=== PATIENT | female | born 1995 | race Caucasian/White ===

== ENCOUNTER 2022-09-17 11:28 | Outpatient (CLI) | payer OTHER, SELFPAY ==
--- NOTE | ~2022-09-17 | XR_ITS ---
EXAMINATION: XR abdomen/kub 1V INDICATION: Left flank pain TECHNIQUE: Supine views of the abdomen were obtained on 2 radiographs. COMPARISON: CT from today FINDINGS: A 4 mm stone projects in the proximal left ureter between the left L1 and L2 transverse pro cesses. Additional known kidney stones are obscured by bowel contents. The bowel gas pattern is yessica l. The visualized osseous structures are unremarkable. IMPRESSION: 1. 4 mm stone in the proximal left ureter. Reviewed, dictated and finalized at location A.
--- NOTE | ~2022-09-17 | CT_ITS ---
EXAMINATION: CT abdomen pelvis wo con DATE: 09/17/2022 11:57 INDICATION: Left flank pain. TECHNIQUE: Computed tomography (CT) of the abdomen and pelvis was performed without intravenous contr ast. Automated exposure control and iterative reconstruction technique were employed. The dose-length product was 213.81 mGy-cm. COMPARISON: None. FINDINGS: The visualized portions of the lung bases are clear without pneumonia or pleural effusion. The heart size is normal. No pericardial effusion. The liver, gallbladder, spleen, pancreas, and adre nal glands are normal. There are 4 stones in the right kidney measuring up to 2 mm. There is a 2 mm i n left kidney. There is mild left hydronephrosis. There is a 4 mm stone in proximal left ureter. Ther e are no dilated loops of bowel. The appendix is not visualized. There are no pathologically enlarged lymph nodes. There is no free intraperitoneal fluid. There is mild lumbar spondylosis. IMPRESSION: 1. 4 mm stone in proximal left ureter with mild left hydronephrosis. 2. Bilateral nonobstructing kidney stones. Reviewed, dictated and finalized at location B.
== END 2022-09-17 11:29 | disposition home or self-care (01) ==
PROVIDERS: Visit Provider Nurse Practitioner Family
DX: R10.9 Unspecified abdominal pain (principal); N20.1 Calculus of ureter; N13.30 Unspecified hydronephrosis; N20.0 Calculus of kidney
CPT/HCPCS: 74018; 74176

== ENCOUNTER 2022-09-24 10:26 | Outpatient (CLI) | payer OTHER, SELFPAY ==
--- NOTE | ~2022-09-24 | XR_ITS ---
XR abdomen/kub 1V 09/24/2022 10:45 INDICATION: Left ureteral stone TECHNIQUE: KUB COMPARISON: None FINDINGS: Bowel gas pattern is normal. There is a calcification just below the left L2 transverse pro cess, consistent with ureteral or UPJ stone. There is no evidence of free air, mass, organomegaly, as cites or obstruction. No abnormal calculi are seen. The bones appear intact. IMPRESSION: 1: Left proximal ureteral or UPJ stone just below the left L2 transverse process measuring approximat leah 4 mm. Reviewed, dictated and finalized at location B. IMPRESSION: 1: Left proximal ureteral or UPJ stone just below the left L2 transverse proces s measuring approximately 4 mm.
== END 2022-09-24 10:27 | disposition home or self-care (01) ==
LOC: ANHIMG 10:28
PROVIDERS: Visit Provider Nurse Practitioner Family
DX: N20.1 Calculus of ureter (principal)
CPT/HCPCS: 74018

== ENCOUNTER 2022-09-27 01:08 | Day surgery (SDC) | payer OTHER, SELFPAY ==
[2022-09-26 08:38] VITALS: BMI 30.9
--- NOTE | 2022-09-26 08:43 | PC.NURSE ---
Report to the Outpatient Waiting Room, entrance under the green pavilion located off [facility], at time 0830 on date 09/27/22. Planned Procedure Time: 1030. Time changes happen often and if your time is changed the preop area will call you the afternoon before. - You and your visitor will be asked to self-screen and do not enter if you have any COVID symptoms. - We encourage only one visitor and NO visitors under age 16 are allowed at this time. Your visitor will receive communication by the phone number that is given day of service. - The patient visitor is requested to social distance or may leave the building when not with patient due to restrictions. - A mask is OPTIONAL within the hospital. Patients may have clear liquids (water, carbonated beverages, clear teas, apple juice) until 3 hours prior to surgery with a maximum of 20 ounces. - No food from midnight until time of surgery Take the following medications with a SIP of water the morning of surgery: BUSPIRONE, PAIN PILL IF NEEDED Medications to discontinue per physician: INDOMETHACIN, VITAMINS/SUPPLEMENTS Date to take last dose: NO MORE UNTIL AFTER SURGERY Please no make-up, nail albanian, hairspray, perfume, deodorant, or body powder the day of surgery. No jewelry (including any body piercings) or valuables the day of surgery, leave them at home. Please take a shower or bath the night before, or the morning of, surgery with an antibacterial soap. Wear comfortable, loose fitting clothing. - Jewelry must be removed prior to entering the operating room. Rings and piercings that are not removed may be cut off. - The hospital will not accept responsibility for valuables. - Please leave all valuables, including medications, at home the day of surgery. If you are going home after surgery, a licensed train driver must drive you home. - NO public transportation without another adult. - We recommend that an adult stay with you for 24 hours following discharge. - We also recommend that you do not drive, make important decision, drink alcoholic beverages, or take any drugs that were not prescribed by your health care provider for at least 24 hours after your discharge time. Follow any additional instructions given to you from your surgeon. If you or anyone in your household have experienced Covid symptoms in the past week, please notify your surgeon or the nurse liaison at the phone number below for possible testing. Telephone instructions given to PT - ANNMARIE GOODMAN and asked if any additional questions and then verbalized understanding. Patient advised to call surgeon office or pre surgery nurse liaison [phone] if any additional questions.
[2022-09-27] VITALS (10 sets, daily range): BP systolic 106–125; BP diastolic 57–79; PULSE 66–92; RESP 12–17; TEMP 36.6–37; O2SAT 99–100
--- NOTE | ~2022-09-27 | XR_ITS ---
XR abdomen/kub 1V 09/27/2022 08:57 Indication: Preop lithotripsy. Renal stone. Procedure: KUB Comparison: 09/24/2022 Findings: Bowel gas pattern is nonobstructive. There is a left-sided stone presumably at the UPJ carly uring 4 mm. No acute osseous abnormality. Impression: 1: Probable left UPJ stone measuring 4 mm. Reviewed, dictated and finalized at location B. Impression: 1: Probable left UPJ stone measuring 4 mm.
[2022-09-27] MEDS: LACTATED RINGERS 1,000 ML 30 ML IV CONT (09:10)
--- NOTE | 2022-09-27 09:12 | P.PNAN_ITS ---
Anes - Initial Pre Proc Eval Procedure: Operation Date: 09/27/22 10:30 Proposed Procedures p Left Ureteral Extracorporeal Shock Wave Lithotripsy - Danny Young MD Date/Time: 09/27/22 09:12 Surgeon: Danny Young MD Pre Op Diagnosis: left ureteral kidney stone Patient Data Age: 26 Gender: F Height: 1.6 m Weight: 79.38 kg Last Vital Signs Temp 36.6 C 09/27/22 08:57 Pulse 92 09/27/22 08:57 Resp 16 09/27/22 08:57 BP 119/63 09/27/22 08:57 Pulse Ox 100 09/27/22 08:57 O2 Del Method Room Air 09/27/22 08:57 Allergies Allergy/AdvReac Type Severity Reaction Status Date / Time Sulfa (Sulfonamide Allergy Hives Verified 09/26/22 08:35 Antibiotics) Home Medications Medication Instructions Recorded Confirmed Type buspirone 15 mg tablet 15 mg PO BID 09/26/22 09/26/22 History indomethacin 50 mg capsule 50 mg PO DAILY PRN Pain 09/26/22 09/26/22 History naratriptan 2.5 mg tablet 2.5 mg PO ONCE PRN Migraine 09/26/22 09/26/22 History Headache norgestimate 0.25 mg-ethinyl 1 tablet PO DAILY 09/26/22 09/26/22 History estradiol 35 mcg tablet (Sprintec (28)) ondansetron 4 mg disintegrating 4 mg PO Q6H PRN Nausea 09/26/22 09/26/22 History tablet peppermint oil 50 mg 50 mg PO DAILY 09/26/22 09/26/22 History capsule,delayed release tramadol 50 mg tablet 50 mg PO Q6H PRN Pain 09/26/22 09/26/22 History Patient hx anesthesia problems: none Family hx anesthesia problems: none Results Review: All pre-operative results and documents have been reviewed as part of the pre- operative evaluation. [facility] Past Medical History Medical History (Updated 09/27/22 @ 09:13 by Joe Blandon MD) Obesity Surgical History Surgical History (Updated 09/27/22 @ 09:13 by Joe Blandon MD) History of dilation of urethra Social History Social History Smoking status: Never smoker Alcohol intake: current Alcohol use details: 2/MONTH Substance use: never Substance use type: does not use Living arrangements: with family Spiritual care concerns: No Anes - Eval Final PreProcedure Day of Procedure 09/27/22 09:12 Patient weight: obese Heart: regular rate and rhythm Lungs: clear to auscultation Airway: Mallampati scale class 1 Neurological: alert and oriented Last oral intake: >/= 8 hours ASA classification: II Emergent: no Anesthetic plan: proceed Anesthesia type and monitoring: general LMA and standard monitoring Results Review: All pre-operative results and documents have been reviewed as part of the pre- operative evaluation. Informed Consent: The patient's anesthetic plan and its attendant risks and benefits were di scussed with the patient/family/POA. Questions were solicited and answers provided to the satisfaction of the patient/family/POA.
--- NOTE | 2022-09-27 09:35 | WPDHPUPDATE1 ---
History and Physical Update Update Date/Time: 09/27/22 09:35 History and Physical has been reviewed, including an updated exam of the patient. There are NO changes in the patient's condition. Risks, benefits, and alternatives have been discussed and questions answered. Patient agrees to proceed with procedure. Proceed with lithotripsy of left ureteral calculus
[2022-09-27 09:41] LABS: INR 1.1; Prothrombin Time 14.1 Seconds (11.1-14.7)
[2022-09-27] MEDS: ceFAZolin 2 GM/D5W 50 ML 2 GM/50 ML BAG IVPB (09:59)
--- NOTE | 2022-09-27 10:42 | W.PM.PROC2 ---
Procedure Note - Detailed Date of Procedure 09/27/22 Pre-op Diagnosis left ureteral kidney stone Post-op Diagnosis Same Procedure Performed Lithotripsy of left ureteral calculus Surgeon Danny Young MD Anesthesia General Description of Procedure Patient is taken to the operative suite correctly identified. Once anesthesia was obtained stone was localized both planes. Two thousand five hundred shocks were given the stone. Patient tolerated procedure well without complications taken recovery stable condition. She will follow-up in 7-10 days with KUB. Drains No Packing No Pathology None sent Complications No immediate complications Condition Stable Disposition PACU
[2022-09-27] MEDS: fentaNYL CITRATE INJ (*CRX) 100 MCG/2 ML VIAL 25 MCG IV PUSH ×5 (11:18→11:58)
[2022-09-27] MEDS: oxyCODONE HCL (*CRX) 5 MG TAB IR PO (12:16)
== END 2022-09-27 13:04 | disposition home or self-care (01) ==
PROVIDERS: Visit Provider Urology
PROC: (CPT 50590; principal; 2022-09-27 10:30)
DX: N20.1 Calculus of ureter (principal); E66.9 Obesity, unspecified; Z68.31 Body mass index [BMI] 31.0-31.9, adult
CPT/HCPCS: 50590; 36415; 74018; 85610; 85730; A9270; J0690; J1100; J2250; J2405; J2704; J3010; J7120

== ENCOUNTER 2022-10-04 09:16 | Outpatient (CLI) | payer OTHER, SELFPAY ==
--- NOTE | ~2022-10-04 | XR_ITS ---
EXAMINATION: XR abdomen/kub 1V DATE: 10/04/2022 09:36 INDICATION: Left flank pain. TECHNIQUE: A supine view of the abdomen on 2 radiographs was obtained. COMPARISON: 09/27/2022 FINDINGS: The small stone previously seen in the region of the left ureteropelvic junction is no longer visuali zed suggesting interval passage. Bilateral costochondral calcifications. No other suspicious calcific ations identified in the abdomen or pelvis. Normal bowel gas pattern. Lung bases are clear with no pl eural effusion. IMPRESSION: 1. No evident urolithiasis suggesting interval passage of the prior 4 mm left UPJ stone. Reviewed, dictated and finalized at location B. IMPRESSION: 1. No evident urolithiasis suggesting interval passage of the prior 4 mm left U PJ stone.
== END 2022-10-04 09:17 | disposition home or self-care (01) ==
PROVIDERS: Visit Provider Nurse Practitioner Family
DX: R10.9 Unspecified abdominal pain (principal)
CPT/HCPCS: 74018

== ENCOUNTER → 2023-09-30 08:24 | Outpatient (CLI) | payer OTHER, SELFPAY ==
--- NOTE | ~2023-09-30 | US_ITS ---
US abdomen limited DATE: 09/30/2023 08:41 INDICATION: Elevated liver function tests TECHNIQUE: Real-time imaging of liver, pancreas, gallbladder COMPARISON: 09/17/2022 CT abdomen pelvis FINDINGS: No hepatic or pancreatic mass lesion is noted. Normal hepatopedal portal venous flow direct ion. No gallstones or gallbladder wall thickening or abnormal pericholecystic fluid collection. Negative s onographic Block's sign. The common bile duct measures 4.3 mm, normal. IMPRESSION: No significant abnormality Reviewed, dictated and finalized at Location A. Reviewed, dictated and finalized at location L. IMPRESSION: No significant abnormality
== END ==
PROVIDERS: PCP Physician Assistant; Visit Provider Physician Assistant
DX: R79.89 Other specified abnormal findings of blood chemistry (principal)
CPT/HCPCS: 76705

== ENCOUNTER 2024-05-15 04:26 | Emergency (ER) | payer OTHER, SELFPAY ==
[2024-05-15] VITALS (7 sets, daily range): BP systolic 122–126; BP diastolic 68–92; PULSE 84–93; RESP 15–18; TEMP 36.6; O2SAT 98–100
--- NOTE | ~2024-05-15 | CT_ITS ---
EXAMINATION: CT abdomen pelvis wo con DATE: 05/15/2024 05:44 INDICATION: Right flank pain TECHNIQUE: Computed tomography (CT) of the abdomen and pelvis was performed without intravenous contr ast. Automated exposure control and iterative reconstruction technique were employed. Exam dose: 432 .03 mGy-cm total exam DLP. COMPARISON: 09/30/2023 Limited abdominal ultrasound examination 10/04/2022 KUB 09/17/2022 CT abdomen pelvis FINDINGS: The lung bases are clear. Normal heart size. No pericardial or pleural effusion. Liver, gallbladder, bile ducts, spleen, pancreas, pancreatic duct and adrenal glands are unremarkable . 2 mm nonobstructing right renal calculus. 2.7 mm right ureterovesical junction calculus with mild right hydroureteronephrosis. Two pinpoint nonobstructing left renal calculi. No left ureteral calculus or left hydronephrosis. The urinary bladder is relatively evacuated. The uterus and adnexal areas are unremarkable. Normal caliber of the abdominal aorta. No intraperitoneal or retroperitoneal or pelvic mass lesion or adenopathy or ascites is detected. No bowel obstruction or intraperitoneal free air. Very small fat-containing umbilical hernia. Included skeletal structures are unremarkable. IMPRESSION: 2.7 mm right ureterovesical junction calculus with mild right hydroureteronephrosis Mild bilateral nephrolithiasis Reviewed, dictated and finalized at Location A. Reviewed, dictated and finalized at location A. IMPRESSION: 2.7 mm right ureterovesical junction calculus with mild right hydr oureteronephrosis Mild bilateral nephrolithiasis
[2024-05-15 04:47] LABS: Basophils Percent Auto 0.2 % (0.2-1.2); Eosinophils Absolute Auto 0.1 K/mm3 (0-0.3); Eosinophils Percent Auto 0.5 % (0-4.4); Hemoglobin 13.1 g/dL (12.0-15.0); Immature Granulocyte Absolute 0.04 K/mm3 (0.00-0.031); Immature Granulocyte Percent A 0.3 % (0-0.5); Lymphocytes Absolute Auto 2.66 K/mm3 (0.9-3.2); Lymphocytes Percent Auto 22.5 % (18.3-44.2); Mean Corpuscular HGB Conc 33.6 g/dl (32-36); Mean Corpuscular Hemoglobin 30.8 pg (26-34); Mean Corpuscular Volume 91.8 fl (80-100); Mean Platelet Volume 9.4 fl (7.4-10.4); Monocytes Absolute Auto 0.6 K/mm3 (0.1-0.6); Monocytes Percent Auto 5.3 % (2.6-8.5); Neutrophils Absolute Auto 8.4 K/mm3 (1.3-6.7); Neutrophils Percent Auto 71.2 % (45.5-73.1); Platelet Count Result 267 k/mm3 (150-375); Red Blood Count 4.25 M/mm3 (4.2-5.4); Red Cell Distribution Width 12.5 % (11.5-14.5); White Blood Count 11.8 K/mm3 (4.5-10.0)
[2024-05-15] MEDS: HYDROmorphone HCL INJ (*CRX) 1 MG/ML SYR 0.5 MG IV PUSH ×2 (05:04→07:49)
[2024-05-15] MEDS: ONDANSETRON INJ 4 MG/2 ML VIAL IV PUSH (05:04)
[2024-05-15] MEDS: SODIUM CHLORIDE 0.9% IV 1,000 ML 999 ML IV CONT (05:04)
[2024-05-15 05:14] LABS: Appearance Urine Clear (Clear); Bacteria Urine None Seen /hpf; Bilirubin Urine Negative (Negative); Blood Urine 2+ (Negative); Color Urine Yellow (Yellow); Glucose Urine UA Negative (Negative); Ketones Urine Negative (Negative); Leukocyte Esterase Ur Negative LEU/UL (Negative); Nitrate Urine Negative (Negative); Non Pathogenic Casts 0-2; Protein Urine Negative (Negative); Specific Grav Ur 1.023 (1.001-1.035); Squamous Epithelial Cell Urine Occasional /hpf (Few); Urobilinogen Urine 0.2 mg/dL (<2.0); WBC Urine 0-5 /hpf (0-3)
[2024-05-15 05:19] LABS: Add Urine Microscopic? YES
[2024-05-15 05:24] LABS: Alanine Aminotransferase 15 U/L (6-35); Albumin Level 4.4 g/dL (3.5-5.1); Alkaline Phosphatase 80 U/L (38-126); Anion Gap 9 mmol/L (4-12); Aspartate Amino Transferase 19 U/L (14-36); Bilirubin,Total 0.8 mg/dL (0.2-1.3); Blood Urea Nitrogen 12 mg/dL (7-17); Carbon Dioxide 22 mmol/L (22-30); Chloride 109 mmol/L (98-107); Estimated CRCL calculation 104 ml/min; Estimated Glomerular Filt Rate > 60; Glucose 111 mg/dL (65-110); Lipase 76 U/L (23-300); Potassium 3.8 mmol/L (3.4-5.0); Sodium 140 mmol/L (137-145)
--- NOTE | 2024-05-15 05:31 | ED.GENADULT ---
HPI - General Adult General Chief complaint: Abdominal Pain Stated complaint: Right flank pain Time Seen by Provider: 05/15/24 04:39 History of Present Illness HPI narrative: This is a 28-year-old female history of kidney stones presenting with right flank pain. Pain started several hours prior to arrival. He has a sharp pain in right flank that radiates into her groin. She has dysuria, Nausea and vomiting. Denies fevers chills Or abdominal pain. Says this feels similar to kidney stone she has had in the past. Related Data Home Medications Medication Instructions Recorded Confirmed buspirone 15 mg tablet 15 mg PO BID 09/26/22 09/26/22 indomethacin 50 mg capsule 50 mg PO DAILY PRN Pain 09/26/22 09/26/22 naratriptan 2.5 mg tablet 2.5 mg PO ONCE PRN Migraine 09/26/22 09/26/22 Headache norgestimate 0.25 mg-ethinyl 1 tablet PO DAILY 09/26/22 09/26/22 estradiol 35 mcg tablet (Sprintec (28)) ondansetron 4 mg disintegrating 4 mg PO Q6H PRN Nausea 09/26/22 09/26/22 tablet peppermint oil 50 mg 50 mg PO DAILY 09/26/22 09/26/22 capsule,delayed release tramadol 50 mg tablet 50 mg PO Q6H PRN Pain 09/26/22 09/26/22 Allergies Allergy/AdvReac Type Severity Reaction Status Date / Time Sulfa (Sulfonamide Allergy Hives Verified 09/26/22 08:35 Antibiotics) PMFSH Past Medical History Medical History Obesity Surgical History Surgical History History of dilation of urethra Social History Social History Smoking status: Never smoker Alcohol intake: current Alcohol use details: 2/MONTH Substance use: never Substance use type: does not use Living arrangements: with family Spiritual care concerns: No Exam Narrative: APPEARANCE: No apparent distress. Head: atraumatic. EYES: EOMI, NOSE: Atraumatic NECK: Trachea midline RESPIRATORY: No increased rate of breathing CARDIOVASCULAR: RRR, ABDOMINAL: Non-distended Soft nontender, right CVA tenderness MUSCULOSKELETAl: No obvious deformities NEURO: Alert. Moving 4/4 extremities SKIN:: Warm, dry. Normal color PSYCHIATRIC: Normal affect Course Vital Signs Vital signs: Vital Signs Temperature 97.9 F 05/15/24 04:38 Pulse Rate 84 05/15/24 04:38 Respiratory Rate 15 05/15/24 04:38 Blood Pressure 126/92 H 05/15/24 04:38 Pulse Oximetry 98 05/15/24 04:38 Oxygen Delivery Room Air 05/15/24 04:38 Temperature 97.9 F 05/15/24 04:38 Pulse Rate 84 05/15/24 04:38 Respiratory Rate 05/15/24 04:38 Blood Pressure 126/92 H 05/15/24 04:38 Pulse Oximetry 100 05/15/24 06:15 Oxygen Delivery Room Air 05/15/24 04:38 Medical Decision Making MDM Narrative Medical decision making narrative: -Course: 28-year-old female presenting with right flank pain. CT showed a 2.7 mm stone at the right UVJ. No evidence of infection. Pain was controlled in the emergency department. Patient will be discharged with supportive medications. Given Neurology follow-up return precautions. -DDX includes but is not limited to: kidney stone, kidney infection, muscle strain -Co-morbidities complicating care: history of kidney stones, migraines -Independent interpretation of studies: Labs reviewed. Urine not indicative of infection CT 2.7 mm right ureterovesical junction calculus with mild right hydroureteronephrosis Mild bilateral nephrolithiasis -Interventions: 0.5 mg Dilaudid x2, 1000 mg Tylenol, 15 mg Toradol, 2 L normal saline, 4 mg Zofran -Shared decision making / Disposition: discharge -RX Motrin, Tylenol, oxycodone, Flomax Vital Signs Vital Signs: Vital Signs Temperature 97.9 F 05/15/24 04:38 Pulse Rate 84 05/15/24 04:38 Respiratory Rate 05/15/24 04:38 Blood Pressure 126/92 H 05/15/24 04:38 Pulse Oximetry 98 05/15/24 04:38 Oxygen D
[2024-05-15] MEDS: KETOROLAC 15 MG/ML VIAL (*BKC) IV PUSH (07:08)
== END 2024-05-15 08:08 | disposition home or self-care (01) ==
PROVIDERS: Emergency Provider Emergency Medicine
DX: N13.2 Hydronephrosis with renal and ureteral calculous obstruction (principal); E66.9 Obesity, unspecified; Z68.30 Body mass index [BMI] 30.0-30.9, adult; Z87.442 Personal history of urinary calculi; Z79.3 Long term (current) use of hormonal contraceptives; Z79.899 Other long term (current) drug therapy
CPT/HCPCS: 36415; 74176; 80053; 81001; 81025; 83690; 85025; 96361; 96374; 96375; 96376; 99284; J1170; J1885; J2405; J7030

== ENCOUNTER 2024-07-01 11:02 | Outpatient (CLI) | payer OTHER, SELFPAY ==
--- NOTE | ~2024-07-01 | XR_ITS ---
XR abdomen/kub 1V Ordering provider: Flakita Morrison PA-C History: . RT URETERAL STONE . Comparison: October 04, 2022 FINDINGS: BOWEL: Nonobstructive bowel gas pattern. ORGANOMEGALY: None. SIGNIFICANT PATHOLOGIC CALCIFICATIONS: None. OTHER: No free air is seen under the diaphragm. IMPRESSION: NO ACUTE ABDOMINAL FINDINGS. Reviewed, dictated and finalized at location A.
--- NOTE | ~2024-07-01 | US_ITS ---
EXAMINATION: US retroperitoneal comp DATE: 07/01/2024 11:49 INDICATION: Right ureteral stone. TECHNIQUE: Multiple ultrasound grayscale images of the kidneys were obtained. COMPARISON: CT abdomen and pelvis 05/15/2024 FINDINGS: The right kidney measures 12.1 x 4.1 x 5.1 cm. The left kidney measures 11.2 x 4.7 x 3.9 cm. The kidn eys demonstrate normal parenchymal echogenicity. There is no hydronephrosis. The bladder is normal. IMPRESSION: 1. Normal kidneys. No hydronephrosis. Reviewed, dictated and finalized at location A.
== END 2024-07-01 11:03 | disposition home or self-care (01) ==
LOC: ANHIMG 11:06
PROVIDERS: Visit Provider Physician Assistant
DX: N20.1 Calculus of ureter (principal)
CPT/HCPCS: 74018; 76770

== ENCOUNTER 2025-07-04 11:04 | Outpatient (CLI) | payer OTHER, SELFPAY ==
--- NOTE | ~2025-07-04 | XR_ITS ---
XR abdomen/kub 1V 07/04/2025 11:24 INDICATION: History of kidney stones TECHNIQUE: KUB COMPARISON: None FINDINGS: Bowel gas pattern is normal. There is no evidence of free air, mass, organomegaly, ascites or obstruction. No abnormal calculi are seen. The bones appear intact. IMPRESSION: 1: No acute abdominal abnormality identified. Reviewed, dictated and finalized at location A.
--- OUTSIDE RECORDS SUMMARY | 2025-07-04 11:34 | XMS_ITS | Encounter Summary ---
Author Organization [facility] Address [address] [place] [id number] Care Team Providers Care Veneer Stacker Name Role Phone Alesia Rooney Primary Care Provider + [phone] Sarahi Haines NP Primary Care Provider [phone] Encounter Details Date Type Department Care Team (Late st Contact Info) Description 08/02/2020 Classroom IQ Message Enc [facility] Family & Internal Medicine [facility] [address] [place] [address] [place] [address] [place] [address] RE: Medication Questions Social History Tobacco Use Types Packs/Day Years Used Date Smoking Tobacco: Never Smokeless Tobacco: Never Alcohol Use Standard Drinks/Week Comments Yes 0 (1 standard drink = 0.6 oz pur e alcohol) occasional. AUDIT-C Answer Date Recorded Q1: How often do you have a drink containing alc ohol? 2-4 times a month 07/18/2020 Q2: How many drinks containi ng alcohol do you have on a typical day when you are drinking? 3 or 4 07/18/2020 Q3: How often do you have si x or more drinks on one occasion? Less than monthly 07/18/2020 PHQ-2 Answer Date Recorded PHQ-2 Score - If the patient scores above 3, please move on to questions 3-9 0 08/01/2020 Comments No Sex and Gender Information Value Date Recorded Sex Assigned at Female 12/30/2024 12:23 PM CIGAR ROLLER Legal Sex Female 10:39 AM CDT Gender Identity Not on file Sexual Orientation Not on file COVID-19 Exposure Response Date Recorded In the last month, have you been in contact with someone who was confirmed or suspected to have Coronavirus / COVID-19? No / Unsure 08/01/2020 7:39 AM CDT documented as of this encounter Plan of Treatment Not on file documented as of this encounter Visit Diagnoses Not on filedocumented in this encounter Care Teams Veneer Stacker Relationship Specialty [place] [address] [place] [address] PCP - General PHYSICIAN REPORTING ANALYST 07/18/20 04/26/24 [place] [address] [address] [facility] [address] [place] [address] PCP - General Nurse Practitioner Family 04/27/24 documented as of this encounter
--- OUTSIDE RECORDS SUMMARY | 2025-07-04 11:34 | XMS_ITS | Encounter Summary ---
Author Organization [facility] Address [address] [place] [address] Care Team Providers Care Dispensing Operator Name Role Phone Sarahi Haines NP Primary Care Provider [phone] Encounter Details Date Type Department Care Team (Late st Contact Info) Description 03/14/2025 Rattlet Message Enc [facility] Medical [facility] Orthopedic & Sports Medicine - [place] [address] [place] [address] [phone] Magnus Go NP [address] [place], [place] [address] [phone] Referral Social History Tobacco Use Types Packs/Day Years Used Date Smoking Tobacco: Never Passive Smoke Exposure: Never Smokeless Tobacco: Never Alcohol Use Standard Drinks/Week Comments Yes 0 (1 standard drink = 0.6 oz pur e alcohol) once every few months AUDIT-C Answer Date Recorded Q1: How often [...] than monthly 07/18/2020 PHQ-2 Answer Date Recorded Patient Health Questionnaire-2 Score 0 02/08/2025 Comments No Sex and Gender Information Value Date Recorded Sex Assigned at Female 12/30/2024 12:23 PM APN Legal Sex Female 10:39 AM CDT Gender Identity Not on file Sexual Orientation Not on file documented as of this encounter Plan of Treatment Not on file documented as of this encounter Visit Diagnoses Not on filedocumented in this encounter Additional Health Concerns Assessment Noted Time PHQ-9 Depression Total Score: 2 02/09/20 25 3:53 PM CDT documented as of this encounter Care Teams Dispensing Operator Relationship Specialty [place] [address] [place] [address] PCP - General Nurse Practitioner Family 04/27/24 documented as of this encounter
--- OUTSIDE RECORDS SUMMARY | 2025-07-04 11:34 | XMS_ITS | Clinical Summary ---
Author Organization [facility] Address [address] [facility] [place] [address] Care Team Providers Care Unit Nurse Name Role Phone Kvng Ma MD Primary Care Provider [phone] Source Comments [facility],non-owned Affiliates and Associated Physician Practices is amultiple site organization consisting of ambulatory clinics and hospital sitesin [place], [place], [place] and [place]. This disclosure is being madepursuant to the Care Everywhere program and may not contain all information available regarding this patient. Last updated 18.[facility] Allergies Active Allergy Reactions Criticality Noted Date Comments Sulfa Drugs Urticaria Medium 06/23/2019 Medications * Be aware that medications may not be up to date on this document. Alwaysverify current medications with the patient. SUMATRIPTAN SUCCINATE PO Active norgestimate-eth inyl estradiol (SPRINTEC 28) 0.25-35 MG-MCG tablet Take 1 tablet by mouth once daily Active ibuprofen (MOTRIN) 600 MG tablet Take 600 mg by mouth every 6 hours as needed for Pain Active Social History Tobacco Use Types Packs/Day Years Used Date Smoking Tobacco: Never Smokeless Tobacco: Never Comments No Sex and Gender Information Value Date Recorded Sex Assigned at Not on file Legal Sex Female 5:36 AM TILLER MAN Gender Identity Not on file Sexual Orientation Not on file Last Filed Vital Signs Vital Sign Reading Time Taken Comments Blood Pressure 112/58 06/23/2019 11:20 AM CDT Pulse 92 06/23/2019 11:20 AM CDT Temperature 37.1 C (98.7 F) 06/23/2019 11:20 AM CDT Respiratory Rate 18 06/23/2019 11:20 AM CDT Oxygen Saturation 99% 06/23/2019 11:20 AM CDT Inhaled Oxygen Concentration - - Weight - - Height - - Body Mass Index - - Plan of Treatment Health Maintenance Due Date Last Done Comments DTAP/TDAP/TD VACCINES (1 - Tdap) 2012 HEPATITIS B VACCINE (1 of 3 - 19+ 3-dose series) 2012 HPV VACCINE (1 - 3-dose SCDM series) 2020 COVID-19 VACCINE (1 - 2023-2 5 season) 2024 DEPRESSION SCREENING 12/01/2024 INFLUENZA VACCINE (#1) 2025 02/18/2014 PAP SMEAR 01/06/2027 01/06/2024 ZOSTER VACCINE (1 of 2) 2043 HEPATITIS C SCREENING Completed 01/06/2024 , 01/06/2024, 01/06/2024 HIV SCREENING Completed 01/06/2024 HIB VACCINE Aged Out No longer eligi ble based on patient's age to complete this topic MENINGOCOCCAL (Group B) VACCINE SHARED DECISION-MAKING Aged Out No longer eligible based on patient's age to complete this topic MENINGOCOCCAL GROUPS A/C/Y/W VACCINE Aged Out No longer eligible b ased on patient's age to complete this topic PNEUMOCOCCAL VACCINE Aged Out No long er eligible based on patient's age to complete this topic Insurance AET[employer] Care Teams Unit Nurse Relationship Specialty Start Date End Date Kvng Ma MD PCP - General Family Medicine 06/23/19
--- OUTSIDE RECORDS SUMMARY | 2025-07-04 11:34 | XMS_ITS | Encounter Summary ---
Author Organization [facility] Address [address] [place] [address] Care Team Providers Care Organ Teacher Name Role Phone Alesai Rooney Primary Care Provider + [phone] Sarahi Haines NP Primary Care Provider + [phone] Encounter Details Date Type Department Care Team (Late st Contact Info) Description 02/24/2024 RedSeguro Message Enc [facility] Family & Internal Medicine [facility] [address] [place] [address] [place] [address] [place] [address] Throat/Tonsils Social History Tobacco Use Types Packs/Day Years Used Date Smoking Tobacco: Never Passive Smoke Exposure: Never Smokeless Tobacco: Never Alcohol Use Standard Drinks/Week Comments Yes 0 (1 standard drink = 0.6 oz pur e alcohol) Once a month - if that. AUDIT-C Answer Date Recorded Q1: How often [...] Date Recorded Patient Health Questionnaire-2 Score 0 01/06/2024 Comments No Sex and Gender Information Value Date Recorded Sex Assigned at Female 12/30/2024 12:23 PM MARKETING TRAFFIC COORDINATOR Legal Sex Female 10:39 AM CDT Gender Identity Not on file Sexual Orientation Not on file documented as of this encounter Plan of Treatment Not on file documented as of this encounter Visit Diagnoses Not on filedocumented in this encounter Additional Health Concerns Assessment Noted Time PHQ-9 Depression Total Score: 5 08/23/20 22 3:00 PM CDT documented as of this encounter Care Teams Organ Teacher Relationship Specialty [place] [address] [place] [address] PCP - General PHYSICIAN PROPERTY UTILIZATION OFFICER 07/18/20 04/26/24 [place] [address] [place] [address] [place] [address] PCP - General Nurse Practitioner Family 04/27/24 documented as of this encounter
--- OUTSIDE RECORDS SUMMARY | 2025-07-04 11:34 | XMS_ITS | Clinical Summary ---
Author Organization [facility] Address [facility] [place] [address] Care Team Providers Care Computer Technologist Name Role Phone Sarahi Haines NP Primary Care Provider + [phone] Allergies Active Allergy Reactions Criticality Noted Date Comments Sulfa Antibiotics Hives Medium 06/23/2019 Medications ondansetron 4 MG disintegrating tablet Take 1 tablet (4 mg total) by mouth every 8 (eight) hours as needed. 09/22/20 20 Active indomethacin 50 MG capsule Take 1 capsule (50 mg total) by mouth daily as needed. 09/06/20 21 Active botulinum toxin type A (BOTOX) 200 units injection Inject 200 Units into the skin every 3 (three) months. 03/04/20 22 Active Peppermint Oil (PEPOGEST) 0.2 ML CAPSULE DELAYED RELEASE 1 capsule daily. Active naratriptan (AMERGE) 2.5 MG tablet Take 1 tablet (2.5 mg total) by mouth as needed. 02/06/20 22 Active Bacillus Coagulans-Inulin (PROBIOTIC-PREBIOT IC OR) 10/31/20 23 Active Norethindrone, Contraceptive, 0.35 MG tabletIndications: Encounter for initial prescription of contraceptive pills Take 1 tablet by mouth daily. 84 tablet 1 01/18/20 25 Active Elastic Bandages & Supports (WRIST SPLINT/COCK-UP/LEF T M) MiscIndications:Bi lateral carpal tunnel syndrome 1 Device by Does not apply route nightly at bedtime. 1 each 02/09/20 25 Active Elastic Bandages & Supports (WRIST SPLINT/COCK-UP/RIG HT M) MiscIndications:Bi lateral carpal tunnel syndrome 1 Device by Does not apply route nightly at bedtime. 1 each 02/09/20 25 Active MAGNESIUM GLYCINATE OR Active LORazepam (ATIVAN) 0.5 MG tabletIndications: Anxiety TAKE 1 TABLET BY MOUTH EVERY 8 HOURS NEEDED FOR ANXIETY 30 tablet 06/27/20 25 Active LORazepam (ATIVAN) 0.5 MG tabletIndications: Anxiety Take 1 tablet (0.5 mg total) by mouth every 8 (eight) hours as needed for Anxiety. 30 tablet 02/09/20 25 025 Discontinued Active Problems Problem Noted Date Diagnosed Date Anxiety 05/18/2022 Recurrent major depressive disorder 05/18/2022 Migraine without aura and wi thout status migrainosus, not intractable 10/17/2017 Kidney stones 08/18/2017 Encounters Date Type Department Care Team Description 06/06/2025 Orders Only [facility] Medical [facility] Orthopedic & Sports Medicine [facility] [address] [place] [address] Magnus Go NP 06/06/2025 MyChart Message Enc [facility] Orthopedic & Sports Medicine [facility] [address] [place] [address] Magnus Go NP OT - Athletico from Last 3 Months Immunizations Immunization Administration Dates Next Due Dtap 08/04/1998,06/26/1994,04/01/1994 ,01/30/1994 Hepatitis B 09/30/1994,1993,1993 Hib (Generic) 06/26/1995 IPV/OPV 06/12/1999,06/01/1994,04/01/1994 ,01/30/1994 Influenza (Generic) 02/18/2014 MMR 06/12/1999,12/05/1994 Tdap (Adacel) 06/07/2008 Varicella (Generic) 06/07/2008,07/11/2004 Family History Medical History Relation Comments Drug Abuse Father Mental Health Father COPD Maternal Grandmother Diabetes Maternal Grandmother Mental Health Maternal Grandmother Mental Health Mother Mental Health Sister Relation Status Comments Father Alive Maternal Grandmother Mother Alive Sister Social History Tobacco Use Types Packs/Day Years Used Date Smoking Tobacco: Never Passive Smoke Exposure: Never Smokeless Tobacco: Never Tobacco Cessation:Counseling Given: No Alcohol Use Standard Drinks/Week Comments Yes 0 [...] Sex Assigned at Female 12/30/2024 12:23 PM SAFETY INSPECTOR Legal Sex Female 10:39 AM CDT Gender Identity Not on file Sexual Orientation Not on file Last Filed Vital Signs Vital Sign Reading Time Taken Comments Blood Pressure 101/59 02/22/2025 8:10 AM CDT Pulse 69 02/22/2025 8:10 AM CDT Temperature 37.2 C (99 F) 02/22/2025 8:10 AM CDT Respiratory Rate 18 02/08/2025 2:32 PM CDT Oxygen Saturation 100% 02/08/2025 2:32 PM CDT Inhaled Oxygen Concentration - - Weight 80.3 kg (177 lb) 02/22/2025 8:10 AM CDT Height 160 cm (5' 3) 02/22/2025 8:10 AM CDT Body Mass Index 31.35 02/22/2025 8:10 AM CDT Plan of Treatment Health Maintenance Due Date Last Done Comments DTaP, Tdap and Td Vaccines (6 - Td or Tdap) 06/07/2018 06/07/2008, 08/04/1998, 06/26/1994, Additional history exists HPV Vaccines (1 - 3-dose SCDM series) 2020 Annual Physical 01/06/2025 01/06/2024, 10/02, 10/18/2021, Additional history exists COVID-19 Vaccine ( season) 2026 Postponed from 08/01/2024 (Patient Refused) Cervical Cancer Screening Pap Smear (Age 30 to 64) Every 3 Years 01/06/2027 01/06/2024, 10/21/2022, 10/18/2021, Additional history exists Cervical Cancer Screening Pap with HPV Testing (Age 30 to 64) Every 5 Years 01/06/2029 01/06/2024 Cervical Cancer Screening with HPV 01/06/2029 Hepatitis B Vaccines Completed 09/30/1994, 1993, 1993 Hepatitis C Completed 01/06/2024 PHQ-2 (Physician Ute) Completed 02/08/2025 Meningococcal B Vaccine Aged Out No l onger eligible based on patient's age to complete this topic Meningococcal Vaccine Aged Out No marcio raquel eligible based on patient's age to complete this topic Pneumococcal Vaccine: Pediatrics (0 to 5 Years) and At-Risk Patients (6 to 49 Years) Aged Out No longer eligible based on patient's age to complete this topic RSV Immunizations Under 20 Months Aged Out No longer eligible based on patient's age to complete this topic Procedures Procedure Name Priority Date/Time Associated Diagnosis Comments HEPATITIS C ANTIBODY W/RFX TO HCV RNA Routine 01/06/2024 8:59 AM SAFETY INSPECTOR Screen for STD (sexually transmitted disease) THINPREP PAP W AGE BASED SCREENING PROTOCOLS Routine 01/06/2024 8:40 AM SAFETY INSPECTOR Cervical cancer screening from Last 3 Months or Most Recently Relevant to Health Maintenance Results * HEPATITIS C ANTIBODY ([facility] ONLY) (01/06/2024 8:59 AM SAFETY INSPECTOR) HEPATITIS C AB NON-REACT TERESA NON-REACT TERESA [facility] Comment: HCV antibody was non-reactive. There is no laboratory evidence of HCV infection. In most cases, no further action is required. However, if recent HCV exposure is suspected, a test for HCV RNA (test code 42324) is suggested. For additional information please refer to http://education.Rudder/faq/QLE43n9 (This link is being provided for informational/ educational purposes only.) 01/06/2024 8:59 AM SAFETY INSPECTOR 01/07/2024 12:42 AM SAFETY INSPECTOR Narrative Resulting Agency Comment Performing Organization Information: Site ID: [id number] Name: [facility] Address: [address] [address] Director: Jose Elias Paez MD [facility] Final Result KATHERIN RAMOS [address] [address], [place] * (ABNORMAL) THINPREP PAP W AGE BASED SCREENING ([facility] ONLY) (01/06/2024 8:40 AM SAFETY INSPECTOR) Comment: [facility] Comment: This order for age-based cervical cancer and STI screening follows ACOG guidelines(PB 168, 140, MUB643). See individual assays for performing site location. CLINICAL INFORMATION: None given [facility] [place] Date of Last Pap NONE [facility] Previous Biopsy? NONE [facility] SOURCE (QST) Endocervix [facility] STATEMENT OF ADEQUACY: [facility] Comment: Satisfactory for evaluation. Endocervical/transformation zone component present. Age and/or menstrual status not provided PAP INTERPRETATION/RES ULTS Cytology Results: Negative for intraepithelial lesion or malignancy. [facility] COMMENT: This Pap test has been evaluated with computer assisted technology. [facility] LASTING FLOORWORKER QUE [facility] Comment: SXW, CT(ASCP) CT Screening Location: [address] [address] COMMENT: [facility] Comment: EXPLANATORY NOTE: The Pap is a screening test for cervical cancer. It is not a diagnostic test and is subject to false negative and false positive results. It is most reliable when a satisfactory sample, regularly obtained, is submitted with relevant clinical findings and history, and when the Pap result is evaluated along with historic and current clinical information. HPV MRNA E6/E7 Not Detected Not Detected [facility] Comment: Methodology: Customer Advocate-Mediated Amplification This assay detects E6/E7 viral messenger RNA (mRNA) from 14 high-risk HPV types (16,18,31,33,35,39,45,51,52,56,58,59,66,68). Cervical sources are required for HPV testing. If a vaginal source from a patient who has had a total hysterectomy with removal of cervix was submitted, please contact the testing laboratory for alternative testing options. For additional information, please refer to http://[employer].Rudder/faq/XNZ579l7 (This link if provided for information/ educational purposes only.) CHLAMYDIA TRACHOMATIS RNA TMA DETECTED(A) NOT DETECTED [facility] Comment: If results do not correlate with clinical findings, testing using an alternate molecular target which amplifies different genetic sequences can be performed on the same sample for result confirmation within 7 days of sample receipt or per performing laboratory specimen retention policy. Alternate target testing is available; [address] (C. trachomatis) or [address] (N. gonorrhoeae). N.GONORRHOEAE RNA TMA (QST) NOT DETECTED NOT DETECTED [facility] COMMENT: [facility] Comment: The analytical performance characteristics of this assay, when used to test SurePath(TM) specimens have been determined by [facility]. The modifications have not been cleared or approved by the FDA. This assay has been validated pursuant to the CLIA regulations and is used for clinical purposes. For additional information, please refer to https://[employer].Rudder/faq/HKZ415 (This link is being provided for information/ educational purposes only.) 01/06/2024 8:40 AM SAFETY INSPECTOR 01/09/2024 12:14 AM SAFETY INSPECTOR Narrative Resulting Agency Comment Performing Organization Information: Site ID: [id number] Name: [facility] Address: [address] [place] [id number] Director: Joshua aCrrington us [facility]TOLOGY ORDERABLE S Final Result [facility] [address] [address], from Last 3 Months or Most Recently Relevant to Health Maintenance Insurance [facility] Care Teams Computer Technologist Relationship Specialty [place] [address] [address] PCP - General Nurse Practitioner Family 04/27/24
--- OUTSIDE RECORDS SUMMARY | 2025-07-04 11:34 | XMS_ITS | Encounter Summary ---
Author Organization [facility] Address [address] [place] [address] Care Team Providers Care Us Administrative Law Judge Name Role Phone Alesia Rooney Primary Care Provider + [phone] Sarahi Haines NP Primary Care Provider + [phone] Encounter Details Date Type Department Care Team (Late st Contact Info) Description 09/23/2023 Utrip Message Enc [facility] Family & Internal Medicine [facility] [address] [place] [address] [place] [address] [place] [address] 08.07.23 Bloodwork Social History Tobacco Use Types Packs/Day Years [...] Answer Date Recorded Patient Health Questionnaire-2 Score 2 02/04/2023 Comments No Sex and Gender Information Value Date Recorded Sex Assigned at Female 12/30/2024 12:23 PM DIRECTOR OF VENDOR MANAGEMENT Legal Sex Female 10:39 AM CDT Gender Identity Not on file Sexual Orientation Not on file documented as of this encounter Progress Notes * Dhara Moseley RN - 09/23/2023 12:47 PM CDT Printed & given to Alesia. documented in this encounter Plan of Treatment Not on file documented as of this encounter Visit Diagnoses Not on filedocumented in this encounter Additional Health Concerns Assessment Noted Time PHQ-9 Depression Total Score: 5 08/23/20 22 3:00 PM CDT documented as of this encounter Care Teams Us Administrative Law Judge Relationship Specialty [place] [address] [place] [address] PCP - General PHYSICIAN GOVERNMENT AFFAIRS MANAGER 07/18/20 04/26/24 [place] [address] [facility] [address] [place] [address] PCP - General Nurse Practitioner Family 04/27/24 documented as of this encounter
--- OUTSIDE RECORDS SUMMARY | 2025-07-04 11:34 | XMS_ITS | Clinical Summary ---
Author Organization [facility] e Address [address] [place] [address] Care Team Providers Care Truck Driver Supervisor Name Role Phone Unavailable Primary Care Provider Unavailabl e Allergies Active Allergy Reactions Criticality Noted Date Comments Sulfa (Sulfonamide Antibiotics) Hives High 05/2016 Medications onabotulinumtoxi nA (Botox) 200 unit Recon SolnIndications: Chronic migraine without aura without status migrainosus, not intractable Inject up to 200u IM to the head and neck muscles every 12 weeks in MD office. Discard unused portion. 1 Each 3 2 Active peppermint oiL 0.2 mL Capsule, Delayed Release(E.C.) Active LORazepam (ATIVAN) 0.5 mg tabletIndication s:Depression, unspecified depression type TAKE 1 TABLET BY MOUTH EVERY 8 HOURS NEEDED FOR ANXIETY 90 Tablet 1 3 Active norethindrone, Contraceptive, 0.35 mg Tablet Take 0.35 mg by mouth daily. 3 Active indomethacin (INDOCIN) 50 mg capsuleIndicatio ns:Chronic migraine w/o aura w/o status migrainosus, not intractable TAKE 1 CAPSULE (50 MG) BY MOUTH 3 TIMES DAILY NEEDED (MIGRAINE). TAKE WITH FOOD. MAXIMUM USE 2 DAYS/WEEK 24 Capsule 2 4 Active naratriptan (AMERGE) 2.5 mg tabletIndication s:Chronic migraine without aura without status migrainosus, not intractable may repeat in 4 hours; max dose 5mg in 24 hours. Max 2 days per week 9 Tablet 5 4 Active ondansetron (ZOFRAN ODT) 4 mg Tablet, Rapid DissolveIndicati ons:Chronic migraine without aura without status migrainosus, not intractable DISSOLVE ONE TABLET IN MOUTH EVERY 8 HOURS NEEDED FOR NAUSEA 20 Tablet 2 4 Active Hospital, Clinic, or Other Facility Administered Medication Ordered Dose Route Frequency Start Date End Date Status onabotulinumtoxinA (BOTOX) injection 200 UnitsIndications:Ch ronic migraine without aura without status migrainosus, not intractable 200 Units Intradermal EVERY 90 DAYS 03/04/2022 Active onabotulinumtoxinA (BOTOX) injection 200 UnitsIndications:Ch ronic migraine without aura without status migrainosus, not intractable 200 Units Intradermal EVERY 90 DAYS 08/19/2022 Active onabotulinumtoxinA (BOTOX) injection 200 UnitsIndications:Ch ronic migraine without aura without status migrainosus, not intractable 200 Units Intradermal EVERY 90 DAYS 11/11/2022 Active onabotulinumtoxinA (BOTOX) injection 200 UnitsIndications:Ch ronic migraine without aura without status migrainosus, not intractable 200 Units Intradermal EVERY 90 DAYS 02/03/2023 Active onabotulinumtoxinA (BOTOX) injection 200 UnitsIndications:Ch ronic migraine without aura without status migrainosus, not intractable 200 Units Intradermal EVERY 90 DAYS 05/01/2023 Active onabotulinumtoxinA (BOTOX) injection 200 UnitsIndications:Ch ronic migraine without aura without status migrainosus, not intractable 200 Units Intradermal EVERY 90 DAYS 07/24/2023 Active onabotulinumtoxinA (BOTOX) injection 200 UnitsIndications:Ch ronic migraine without aura without status migrainosus, not intractable 200 Units Intradermal EVERY 90 DAYS 10/17/2023 Active onabotulinumtoxinA (BOTOX) injection 200 UnitsIndications:Ch ronic migraine without aura without status migrainosus, not intractable 200 Units Intradermal EVERY 90 DAYS 01/09/2024 Active onabotulinumtoxinA (BOTOX) injection 200 UnitsIndications:Ch ronic migraine w/o aura w/o status migrainosus, not intractable 200 Units Intradermal EVERY 90 DAYS 04/06/2024 Active onabotulinumtoxinA (BOTOX) injection 200 UnitsIndications:Ch ronic migraine without aura without status migrainosus, not intractable 200 Units Intradermal EVERY 90 DAYS 06/29/2024 Active onabotulinumtoxinA (BOTOX) injection 200 UnitsIndications:Ch ronic migraine without aura without status migrainosus, not intractable 200 Units Intradermal EVERY 90 DAYS 09/21/2024 Active onabotulinumtoxinA (BOTOX) injection 200 UnitsIndications:Ch ronic migraine w/o aura w/o status migrainosus, not intractable 200 Units Intradermal EVERY 90 DAYS 12/14/2024 Active Active Problems Problem Noted Date Diagnosed Date Recurrent major depressive disorder 05/18/2022 Anxiety 05/18/2022 Chronic migraine w/o aura w/ o status migrainosus, not intractable 10/17/2017 Kidney stone 09/03/2017 Resolved Problems Problem Noted Date Diagnosed Date Resolved Date Depression 03/06/2016 05/18/2022 Encounters Date Type Department Care Team Description 06/15/2025 External Device Data STL ABSTRACTION Provider, Abstract 06/14/2025 External Device Data STL ABSTRACTION Provider, Abstract 06/07/2025 9:00 AM CDT Procedure visit [facility] [address] [facility] [address] [place] [address] Meghan Sauer NP Chronic migraine w/o aura w/o status migrainosus, not intractable (Primary Dx) 05/31/2025 External Device Data STL ABSTRACTION Provider, Abstract 05/10/2025 10:00 AM CDT Office Visit [facility] [address] [facility] [address] [place] [address] Salbador Omalley MD Chronic migraine without aura without status migrainosus, not intractable (Primary Dx) from Last 3 Months Immunizations Immunization Administration Dates Next Due (ADACEL/BOOSTRIX)(10 YR UP) TDAP VACCINE, 0.5ML, IM 06/07/2008 (INFANRIX)(6 WKS-6 YRS) DIPT HERIA, TETANUS TOXOIDS, AND ACCELLULAR PERTUSSIS VACCINE (DTAP), 0.5 ML IM 08/04/1998,06/26/1994,04/01/1994,1993 (M-M-R II/PRIORIX)(12 MO UP) MEASLES, MUMPS AND RUBELLA VIRUS VACCINE, 0.5 ML IM/SUBCUT 06/12/1999,12/05/1994 (VARIVAX)(12 MOS UP)VARICELL A VIRUS VACCINE (PF) 0.5 ML, SUB CUT 06/07/2008,07/11/2004 HIB, Unspecified Formulation 06/26/1995 Hepatitis B Vaccine, Unspeci fied Formulation 09/30/1994,1993,1993 Influenza, Unspecified Formulation 02/18/2014 Poliovirus Vaccine Live Oral 06/12/1999, 06/01/1994,04/01/1994,1993 Family History Medical History Relation Name Comments Healthy Brother Grayson Sotelo Healthy Father Cornell Tate depression, drug abuse Diabetes Maternal Grandmother Megha Hightower Heart Disease Maternal Grandmother Megha Hightower Other Maternal Grandmother Megha Hightower COPD Healthy Mother Roshni Cárdenas Cancer Paternal Grandfather Unknown Healthy Paternal Grandfather Unknown Healthy Paternal Grandmother Shannan Ward Healthy Sister Sandi Cárdenas Relation Name Status Comments Brother Grayson Sotelo Father Cornell Tate Maternal Grandmother Megha Hightower Mother Roshni Cárdenas Paternal Grandfather Unknown Paternal Grandmother Shannan Ward Sister Sandi Cárdenas Social History Tobacco Use Types Packs/Day Years Used Date Smoking Tobacco: Never Smokeless Tobacco: Never Tobacco Cessation:Counseling Given: Not Answered Alcohol Use Standard Drinks/Week Comments Yes 0 (1 standard drink = 0.6 oz pur e alcohol) 0-3 weekly Comments No Sex and Gender Information Value Date Recorded Sex Assigned at Not on file Legal Sex Female 10:30 AM HOTEL RECREATIONAL FACILITIES MANAGER Gender Identity Not on file Sexual Orientation Not on file Last Filed Vital Signs Vital Sign Reading Time Taken Comments Blood Pressure 110/82 06/07/2025 9:01 AM CDT Pulse 79 06/07/2025 9:01 AM CDT Temperature 36.2 C (97.1 F) 10/12/2020 1:09 PM HOTEL RECREATIONAL FACILITIES MANAGER Respiratory Rate 17 06/29/2024 9:36 AM CDT Oxygen Saturation 99% 06/07/2025 9:01 AM CDT Inhaled Oxygen Concentration - - Weight 74.8 kg (165 lb) 09/21/2024 9:55 AM CDT Height 160 cm (5' 3) 09/21/2024 9:55 AM CDT Body Mass Index 29.23 09/21/2024 9:55 AM CDT Plan of Treatment Upcoming Encounters Date Type Department Care Team (Late st Contact Info) Description 08/30/2025 9:30 AM CDT Procedure visit [facility] [address] [facility] [address] [place] [address] Meghan Sauer, STACY [address] [facility] [address] [place] [address] 11/22/2025 9:30 AM HOTEL RECREATIONAL FACILITIES MANAGER Procedure visit [facility] [address] [facility] [address] [place] [address] Racheal Aaron FNP [address] [facility] [address] [place] [address] 05/10/2026 9:00 AM CDT Office Visit [facility] [address] [facility] [address] [place] [address] Salbador Omalley MD [address] [facility] [address] [place] [address] Health Maintenance Due Date Last Done Comments HPV VACCINES (1 - 3-dose series) 2008 HPV/Cotest (21-29) 2014 DTAP/TDAP/TD VACCINES (6 - T d or Tdap) 06/07/2018 06/07/2008, 08/04/1998, 06/26/1994, Additional history exists HPV/Cotest (30-65) 2023 INFLUENZA VACCINE (#1) 2025 CERVICAL CANCER SCREENING 01/06/2027 PAP SMEAR 01/06/2027 01/06/2024, 11/2 12/2021, 10/18/2021, Additional history exists HEPATITIS B VACCINES Completed 09/30/1994, 1993, 1993 Procedures Procedure Name Priority Date/Time Associated Diagnosis Comments PA CHEMODERVATE FACIAL/TRIGEM/CERV MUSC MIGRAINE Routine 06/07/2025 9:34 AM CDT Chronic migraine w/o aura w/o status migrainosus, not intractable from Last 3 Months Results * PA CHEMODERVATE FACIAL/TRIGEM/CERV MUSC MIGRAINE (06/07/2025 9:34 AM CDT) Narrative Meghan Sauer NP - 06/07/2025 9:34 AM CDT Meghan Sauer NP 06/07/2025 9:35 AM Botox Procedure Note Patient: Fozia Durandue / 29 y.o. / female : 1995 BP 110/82 (BP Location: Left arm, Patient Position (BP): Sitting, BP Cuff Size: Adult) Pulse 79 SpO2 99% Procedure Performed: Botox for Chronic Migraine without Aura Date of Service: 06/07/2025 Provider: Meghan Sauer NP Medical Necessity for Procedure: This patient has a history of intractable headache present for 15 or more days per month, at least 8 of which lasting for more than 4 hours a day and meeting migraine criteria for at least 3 months. They have tried at least 2 migraine prophylaxis medications. It is medically necessary to proceed with Botulinum toxin A injections per PREEMPT protocol in order to optimize this patient's treatment plan that will result in improved level of functioning and quality of life. Past Medical History: Past Medical History: Diagnosis Date Anxiety Depression 03/06/2016 Headache Kidney stone 09/03/2017 Migraine without aura and without status migrainosus, not intractable 10/17/2017 Recurrent major depressive disorder 05/18/2022 Supporting Evidence for the Treatment's Effectiveness: BOTOX was evaluated in two randomized, multi-center, 24-week, 2 injection cycle, placebo-controlled double-blind studies. Study 1 and Study 2 included chronic migraine adults who were not using any concurrent headache prophylaxis, and during a 28-day baseline period had >15 headache days lasting 4 hours or more, with >50% being migraine/probable migraine. In both studies, patients were randomized to receive placebo or 155 Units to 195 Units BOTOX injections every 12 weeks for the 2-cycle, double-blind phase. Patients were allowed to use acute headache treatments during the study. BOTOX treatment demonstrated statistically significant and clinically meaningful improvements from baseline compared to placebo for lin efficacy variables (see Table 31). Patients treated with BOTOX had a significantly greater mean decrease from baseline in the frequency of headache days at most timepoints from Week 4 to Week 24 in Study 1 (Figure 11), and all timepoints from Week 4 to Week 24 in Study 2 (Figure 12), compared to placebo-treated patients. Diagram of Injection sites: Procedure Details: The patient was educated about the risks and benefits of the procedure prior to starting. The patient signed a form showing they received informed consent. Then the patient was given Botox as follows: OnabotulinumtoxinA-Botox 200 units (lot # [id number] ; expiration 09/26) was reconstituted using 4 ml preservative free saline to a final concentration of 50 units/ml. Using 1 ml syringes with 30 gauge 0.5 inch needles, and aseptic technique, Botox was administered as follows: Muscle # units Right # of inj sites Right # units Left # of inj sites Left Total units Cps Team Lead 5 1 5 1 10 Procerus 5 Frontalis 10 2 10 2 20 Temporalis 20 4 20 4 40 Occipitalis 15 3 15 3 30 Cervical Paraspinal 10 2 10 2 20 Trapezius 15 3 15 3 30 TOTAL units injected 155 Units wasted 45 Each injection was preceded by negative aspiration for blood. Patient tolerated the procedure well. Post-injection care instructions reviewed and patient discharged in good and stable condition. Medications Administered This Visit: Administrations This Visit onabotulinumtoxinA (BOTOX) injection 155 Units Admin Date 06/07/2025 Action Given Dose 155 Units Route IM Documented By Meghan Sauer NP SODIUM CHLORIDE 0.9 %, BACTERIOSTATIC INJECTION SOLUTION (CABINET OVERRIDE) Admin Date 06/07/2025 Action Given Dose 4 mL Route Documented By Meghan Sauer NP Were there any complications during this procedure or following previous Botox procedures for Chronic Migraine?: No Treatment Plan: Continue Botox every 12 weeks Follow up assessment scheduled 05/10/[address] Shahram Sauer NP Meghan Breanna Camacho TOWN ADMINISTRATOR PROCEDURE/MINOR MARTI RGICAL ORDERABLES Final Result from Last 3 Months Insurance [facility] [id number]
--- OUTSIDE RECORDS SUMMARY | 2025-07-04 11:34 | XMS_ITS | Encounter Summary ---
Author Organization [facility] Address [address] [place] [address] Care Team Providers Care Branch Controller Name Role Phone Alesia Rooney Primary Care Provider + [phone] Sarahi Haines NP Primary Care Provider + [phone] Encounter Details Date Type Department Care Team (Late st Contact Info) Description 01/06/2024 [facility] Message Enc [facility] Medical Group Family & Internal Medicine [facility] [address] [place] [address] [place] [address] [place] [address] Immunizations Social History Tobacco Use Types Packs/Day Years [...] Sex Assigned at Female 12/30/2024 12:23 PM SUPERVISOR PIT AND AUXILIARIES Legal Sex Female 10:39 AM CDT Gender Identity Not on file Sexual Orientation Not on file documented as of this encounter Functional Status * Over the past 2 weeks, how often have you been bothered by any of the following problems? Question Answer Date of Assessment Author Status Little interest or pleasure in doing things Not at all 01/06/2024 8:14 AM Debbie Nolasco MA Active Feeling down, depressed, or hopeless Not at all 01/06/2024 8:14 AM Debbie Nolasco MA Activ e Patient Health Questionnaire-2 Score 0 01/06/2024 8:14 AM Debbie Nolasco MA Active * If you checked off any problems on this questionnaire so far, Question Answer Date of Assessment Author Status How difficult have these problems made it for you to do your work, take care of things at home, or get along with other people? Not difficult at all 01/06/2024 8:14 AM Debbie Nolasco MA Active documented as of this encounter Plan of Treatment Not on file documented as of this encounter Visit Diagnoses Not on filedocumented in this encounter Additional Health Concerns Assessment Noted Time PHQ-9 Depression Total Score: 5 08/23/20 22 3:00 PM CDT documented as of this encounter Care Teams Branch Controller Relationship Specialty [place] [address] [place] [address] PCP - General PHYSICIAN BREAD MOLDER 07/18/20 04/26/24 [place] [address] [address] [place] [address] PCP - General Nurse Practitioner Family 04/27/24 documented as of this encounter
--- OUTSIDE RECORDS SUMMARY | 2025-07-04 11:34 | XMS_ITS | Encounter Summary ---
Author Organization [facility] Address [address] [place] [address] Care Team Providers Care Facing Baster Name Role Phone Alesia Rooney Primary Care Provider + [phone] Sarahi Haines NP Primary Care Provider + [phone] Encounter Details Date Type Department Care Team (Late st Contact Info) Description 12/05/2021 [facility] Message Enc [facility] Medical Group Family & Internal Medicine [facility] [address] [place] [address] [place] [address] [place] [address] Surgeon Opinion Social History Tobacco Use Types Packs/Day Years [...] please move on to questions 3-9 0 08/08/2021 Comments No Sex and Gender Information Value Date Recorded Sex Assigned at Female 12/30/2024 12:23 PM CREDIT CONTROL OFFICER Legal Sex Female 10:39 AM CDT Gender Identity Not on file Sexual Orientation Not on file COVID-19 Exposure Response Date Recorded In the last month, have you been in contact with someone who was confirmed or suspected to have Coronavirus / COVID-19? No / Unsure 11/20/2021 7:32 AM CREDIT CONTROL OFFICER documented as of this encounter Plan of Treatment Not on file documented as of this encounter Visit Diagnoses Not on filedocumented in this encounter Additional Health Concerns Assessment Noted Time PHQ-9 Depression Total Score: 0 08/08/20 2:31 PM CDT documented as of this encounter Care Teams Facing Baster Relationship Specialty [place] [address] [place] [address] PCP - General PHYSICIAN TIRE REGROOVING MACHINE OPERATOR 07/18/20 04/26/24 [place] [address] [place] [address] PCP - General Nurse Practitioner Family 04/27/24 documented as of this encounter
--- OUTSIDE RECORDS SUMMARY | 2025-07-04 11:34 | XMS_ITS | Encounter Summary ---
Author Organization [facility] Address [address] [place] [address] Care Team Providers Care Back Maker Name Role Phone Alesia Rooney Primary Care Provider + [phone] Sarahi Haines NP Primary Care Provider + [phone] Encounter Details Date Type Department Care Team (Late st Contact Info) Description 07/14/2023 Universal Adt Message Enc [facility] Medical Group Family & Internal Medicine [facility] [address] [place] [address] [place] [address] [place] [address] Hair Loss Social History Tobacco Use Types Packs/Day Years [...] Sex Assigned at Female 12/30/2024 12:23 PM JACK MACHINE OPERATOR Legal Sex Female 10:39 AM CDT Gender Identity Not on file Sexual Orientation Not on file documented as of this encounter Plan of Treatment Not on file documented as of this encounter Visit Diagnoses Not on filedocumented in this encounter Additional Health Concerns Assessment Noted Time PHQ-9 Depression Total Score: 5 08/23/20 22 3:00 PM CDT documented as of this encounter Care Teams Back Maker Relationship Specialty [place] [address] [place] [address] PCP - General PHYSICIAN ELECTRICAL MAINTENANCE TECHNICIAN 07/18/20 04/26/24 [place] [address] [address]. [place] [address] PCP - General Nurse Practitioner Family 04/27/24 documented as of this encounter
--- OUTSIDE RECORDS SUMMARY | 2025-07-04 11:34 | XMS_ITS | Encounter Summary ---
Author Organization [facility] Address [address] [place] [address] Care Team Providers Care Road Tester Name Role Phone Alesia Rooney Primary Care Provider + [phone] Sarahi Haines NP Primary Care Provider + [phone] Encounter Details Date Type Department Care Team (Late st Contact Info) Description 04/14/2023 [employer] Message Enc [facility] Medical Group Family & Internal Medicine [facility] [address] [place] [address] [place] [address] [place] [address] Sertraline 50MG Social History Tobacco Use Types Packs/Day Years [...] Sex Assigned at Female 12/30/2024 12:23 PM FORM BUILDER HELPER Legal Sex Female 10:39 AM CDT Gender Identity Not on file Sexual Orientation Not on file documented as of this encounter Progress Notes * Litzy Goldman MA - 04/21/2023 12:09 PM CDT LMOM to inform pt of note below. * PHONG Hamilton - 04/16/2023 11:14 AM CDT I believe this was sent to me by mistake. * Litzy Goldman MA - 04/14/2023 11:05 AM CDT Please advise? documented in this encounter Plan of Treatment Not on file documented as of this encounter Visit Diagnoses Not on filedocumented in this encounter Additional Health Concerns Assessment Noted Time PHQ-9 Depression Total Score: 5 08/23/20 22 3:00 PM CDT documented as of this encounter Care Teams Road Tester Relationship Specialty [place] [address] [place] [address] PCP - General PHYSICIAN WATER AND SEWER SYSTEMS SUPERINTENDENT 07/18/20 04/26/24 [place] [address] [facility] [address] [place] [address] PCP - General Nurse Practitioner Family 04/27/24 documented as of this encounter
--- OUTSIDE RECORDS SUMMARY | 2025-07-04 11:34 | XMS_ITS | Encounter Summary ---
Author Organization [facility] Address [address] [place] [address] Care Team Providers Care Supervisor Wet End Name Role Phone Sarahi Haines NP Primary Care Provider Encounter Details Date Type Department Care Team (Late st Contact Info) Description 06/06/2025 Tonxt Message Enc [facility] Medical Group Orthopedic & Sports Medicine - [place] [address] [place] [address] [phone] Magnus Go NP [address] [place], [place] [phone]- OT - [facility] Social History Tobacco Use Types Packs/Day Years [...] Sex Assigned at Female 12/30/2024 12:23 PM DOORMAKER Legal Sex Female 10:39 AM CDT Gender Identity Not on file Sexual Orientation Not on file documented as of this encounter Progress Notes * Holli Palomares MA - 06/06/2025 4:03 PM CDT Order was originally sent to [facility]. Sending to [facility]. Calling patient she is aware, she states she is not bracing as often as she should. I reminded her that she should be doing this every night so we can treat her symptoms properly. Patient verbalizes understanding. documented in this encounter Plan of Treatment Not on file documented as of this encounter Visit Diagnoses Not on filedocumented in this encounter Additional Health Concerns Assessment Noted Time PHQ-9 Depression Total Score: 2 02/09/20 25 3:53 PM CDT documented as of this encounter Care Teams Supervisor Wet End Relationship Specialty [place] [address] [address] PCP - General Nurse Practitioner Family 04/27/24 documented as of this encounter
--- OUTSIDE RECORDS SUMMARY | 2025-07-04 11:34 | XMS_ITS | Encounter Summary ---
Author Organization [facility] Address [address] [place] [address] Care Team Providers Care Bed Teacher Name Role Phone Alesia Rooney Primary Care Provider + [phone] Sarahi Haines NP Primary Care Provider + [phone] Encounter Details Date Type Department Care Team (Late st Contact Info) Description 04/03/2023 [employer] Mobile[employer] Message Enc [facility] Medical Group Family & Internal Medicine [facility] [address] [place] [address] [place] [address] [place] [address] Control Social History Tobacco Use Types Packs/Day Years [...] Sex Assigned at Female 12/30/2024 12:23 PM INSPECTOR MACHINED PARTS Legal Sex Female 10:39 AM CDT Gender Identity Not on file Sexual Orientation Not on file documented as of this encounter Plan of Treatment Not on file documented as of this encounter Visit Diagnoses Not on filedocumented in this encounter Additional Health Concerns Assessment Noted Time PHQ-9 Depression Total Score: 5 08/23/20 22 3:00 PM CDT documented as of this encounter Care Teams Bed Teacher Relationship Specialty [place] [address] [place] [address] PCP - General PHYSICIAN WASHERETTE MACHINE OPERATOR 07/18/20 04/26/24 [place] [address] [address]. [place] [address] PCP - General Nurse Practitioner Family 04/27/24 documented as of this encounter
--- OUTSIDE RECORDS SUMMARY | 2025-07-04 11:34 | XMS_ITS | Encounter Summary ---
Author Organization [facility] Address [address] [place] [address] Care Team Providers Care Documentation Nurse Name Role Phone Alesia Rooney Primary Care Provider + [phone] Sarahi Haines NP Primary Care Provider + [phone] Encounter Details Date Type Department Care Team (Late st Contact Info) Description 01/09/2024 [employer] Message Enc [facility] Medical Group Family & Internal Medicine [facility] [address] [place] [address] [place] [address] [place] [address] Fluconazole Social History Tobacco Use Types Packs/Day Years [...] Sex Assigned at Female 12/30/2024 12:23 PM TELEPHONIC NURSE Legal Sex Female 10:39 AM CDT Gender Identity Not on file Sexual Orientation Not on file documented as of this encounter Plan of Treatment Not on file documented as of this encounter Visit Diagnoses Not on filedocumented in this encounter Additional Health Concerns Assessment Noted Time PHQ-9 Depression Total Score: 5 08/23/20 22 3:00 PM CDT documented as of this encounter Care Teams Documentation Nurse Relationship Specialty [place] [address] [place] [address] PCP - General PHYSICIAN CONDITIONING COACH 07/18/20 04/26/24 [place] [address] [address] [facility] [address] [place] [address] PCP - General Nurse Practitioner Family 04/27/24 documented as of this encounter
--- OUTSIDE RECORDS SUMMARY | 2025-07-04 11:34 | XMS_ITS | Encounter Summary ---
Author Organization [facility] Address [address] [place] [address] Care Team Providers Care Bar Back Name Role Phone Alesia Rooney Primary Care Provider + [phone] Sarahi Haines NP Primary Care Provider + [phone] Encounter Details Date Type Department Care Team (Late st Contact Info) Description 09/28/2021 [employer] Message [facility] Family & Internal Medicine [facility] [id number] [place] [address] [facility] Provider Appointment Social History Tobacco Use Types Packs/Day Years [...] at Female 12/30/2024 12:23 PM DIRECTOR OF CONVENTION SERVICES Legal Sex Female 10:39 AM CDT Gender Identity Not on file Sexual Orientation Not on file COVID-19 Exposure Response Date Recorded In the last month, have you been in contact with someone who was confirmed or suspected to have Coronavirus / COVID-19? No / Unsure 09/04/2021 3:06 PM CDT documented as of this encounter Plan of Treatment Not on file documented as of this encounter Visit Diagnoses Not on filedocumented in this encounter Additional Health Concerns Assessment Noted Time PHQ-9 Depression Total Score: 0 08/08/20 21 2:31 PM CDT documented as of this encounter Care Teams Bar Back Relationship Specialty [place] [address] [place] [address] PCP - General PHYSICIAN SPORTING GOODS SALES ASSOCIATE 07/18/20 04/26/24 [place] [address] [address] [facility] [address] [place] [address] PCP - General Nurse Practitioner Family 04/27/24 documented as of this encounter
--- OUTSIDE RECORDS SUMMARY | 2025-07-04 11:34 | XMS_ITS | Encounter Summary ---
Author Organization [facility] Address [address] [place] [address] Care Team Providers Care Dental Assisting Instructor Name Role Phone Alesia Rooney Primary Care Provider + [phone] Sarahi Haines NP Primary Care Provider + [phone] Encounter Details Date Type Department Care Team (Late st Contact Info) Description 01/14/2024 [employer] Message Enc [facility] Medical Group Family & Internal Medicine [facility] [address] [place] [address] [place] [address] [place] [address] Call Social History Tobacco Use Types Packs/Day Years [...] Sex Assigned at Female 12/30/2024 12:23 PM PAIN MANAGEMENT PHYSICIAN Legal Sex Female 10:39 AM CDT Gender Identity Not on file Sexual Orientation Not on file documented as of this encounter Plan of Treatment Not on file documented as of this encounter Visit Diagnoses Not on filedocumented in this encounter Additional Health Concerns Assessment Noted Time PHQ-9 Depression Total Score: 5 08/23/20 22 3:00 PM CDT documented as of this encounter Care Teams Dental Assisting Instructor Relationship Specialty [place] [address] [place] [address] PCP - General PHYSICIAN CREAM SEPARATOR OPERATOR 07/18/20 04/26/24 [place] [address] [address] [facility] [address] [place] [address] PCP - General Nurse Practitioner Family 04/27/24 documented as of this encounter
--- OUTSIDE RECORDS SUMMARY | 2025-07-04 11:34 | XMS_ITS | Encounter Summary ---
Author Organization [facility] Address [address] [place] [address] Care Team Providers Care Sport Intern Name Role Phone Alesia Rooney Primary Care Provider + [phone] Sarahi Haines NP Primary Care Provider + [phone] Encounter Details Date Type Department Care Team (Late st Contact Info) Description 09/25/2023 [employer] Message Enc [facility] Medical Group Family & Internal Medicine [facility] [address] [place] [address] [place] [address] [place] [address] [place] ABD Limited Social History Tobacco Use Types Packs/Day Years [...] Sex Assigned at Female 12/30/2024 12:23 PM ADJUNCT PHLEBOTOMY INSTRUCTOR Legal Sex Female 10:39 AM CDT Gender Identity Not on file Sexual Orientation Not on file documented as of this encounter Plan of Treatment Not on file documented as of this encounter Visit Diagnoses Not on filedocumented in this encounter Additional Health Concerns Assessment Noted Time PHQ-9 Depression Total Score: 5 08/23/20 22 3:00 PM CDT documented as of this encounter Care Teams Sport Intern Relationship Specialty [place] [address] [place] [address] PCP - General PHYSICIAN ROUNDHOUSE SUPERVISOR 07/18/20 04/26/24 [place] [address] [address] [facility] [address] [place] [address] PCP - General Nurse Practitioner Family 04/27/24 documented as of this encounter
--- OUTSIDE RECORDS SUMMARY | 2025-07-04 11:34 | XMS_ITS | Encounter Summary ---
Author Organization [facility] Address [address] [place] [address] Care Team Providers Care Visual Design Lead Name Role Phone Sarahi Haines NP Primary Care Provider [phone] Encounter Details Date Type Department Care Team (Late st Contact Info) Description 11/01/2024 [employer] Message Enc [facility] Medical Group Family & Internal Medicine [facility] [address] [place] [address] [place] [address] [place] [address] Recommendations Social History Tobacco Use Types Packs/Day Years [...] Date Recorded Patient Health Questionnaire-2 Score 0 05/04/2024 Comments No Sex and Gender Information Value Date Recorded Sex Assigned at Female 12/30/2024 12:23 PM MALLET AND DIE CUTTER Legal Sex Female 10:39 AM CDT Gender Identity Not on file Sexual Orientation Not on file documented as of this encounter Plan of Treatment Not on file documented as of this encounter Visit Diagnoses Not on filedocumented in this encounter Additional Health Concerns Assessment Noted Time PHQ-9 Depression Total Score: 2 05/04/20 24 3:00 PM CDT documented as of this encounter Care Teams Visual Design Lead Relationship Specialty [place] [address] [place] [address] PCP - General Nurse Practitioner Family 04/27/24 documented as of this encounter
--- OUTSIDE RECORDS SUMMARY | 2025-07-04 11:34 | XMS_ITS | Encounter Summary ---
Author Organization [facility] Address [address] [place] [address] Care Team Providers Care Reworker Name Role Phone Alesia Rooney Primary Care Provider + [phone] Sarahi Haines NP Primary Care Provider + [phone] Encounter Details Date Type Department Care Team (Latest Contact Info) Description 10/28/2022 [employer] Message Enc [facility] Medical Group Family & Internal Medicine [facility] [address] [place] [address] [place] [address] [place] [address] Question - Kidney Stone Preventative Social History Tobacco Use Types Packs/Day Years [...] 3, please move on to questions 3-9 1 08/23/2022 Comments No Sex and Gender Information Value Date Recorded Sex Assigned at Female 12/30/2024 12:23 PM WAREHOUSE INVENTORY CLERK Legal Sex Female 10:39 AM CDT Gender Identity Not on file Sexual Orientation Not on file COVID-19 Exposure Response Date Recorded In the last 10 days, have yo u been in contact with someone who was confirmed or suspected to have Coronavirus/COVID-19? No / Unsure 10/21/2022 8:35 AM WAREHOUSE INVENTORY CLERK documented as of this encounter Plan of Treatment Not on file documented as of this encounter Visit Diagnoses Not on filedocumented in this encounter Additional Health Concerns Assessment Noted Time PHQ-9 Depression Total Score: 5 08/23/20 22 3:00 PM CDT documented as of this encounter Care Teams Reworker Relationship Specialty [place] [address] [place] [address] PCP - General PHYSICIAN ASSEMBLER FLEXIBLE LEADS 07/18/20 04/26/24 [place] [address] [address] [place] [address]. [place] [address] PCP - General Nurse Practitioner Family 04/27/24 documented as of this encounter
--- OUTSIDE RECORDS SUMMARY | 2025-07-04 11:34 | XMS_ITS | Encounter Summary ---
Author Organization [facility] Address [address] [place] [address] Care Team Providers Care Glass Ribbon Machine Operator Name Role Phone Alesia Rooney Primary Care Provider + [phone] Sarahi Haines NP Primary Care Provider + [phone] Encounter Details Date Type Department Care Team (Late st Contact Info) Description 04/30/2022 [employer] Message Enc [facility] Medical Group Family & Internal Medicine [facility] [address] [place] [address] [place] [address] [place] [address] Medication Social History Tobacco Use Types Packs/Day Years [...] Sex Assigned at Female 12/30/2024 12:23 PM FURNACE TAPPER Legal Sex Female 10:39 AM CDT Gender Identity Not on file Sexual Orientation Not on file documented as of this encounter Plan of Treatment Not on file documented as of this encounter Visit Diagnoses Not on filedocumented in this encounter Additional Health Concerns Assessment Noted Time PHQ-9 Depression Total Score: 0 08/08/20 21 2:31 PM CDT documented as of this encounter Care Teams Glass Ribbon Machine Operator Relationship Specialty [place] [address] [place] [address] PCP - General PHYSICIAN DRAW FRAME OPERATOR 07/18/20 04/26/24 [place] [address] [address] [address]. [place] [address] PCP - General Nurse Practitioner Family 04/27/24 documented as of this encounter
--- OUTSIDE RECORDS SUMMARY | 2025-07-04 11:34 | XMS_ITS | Encounter Summary ---
Author Organization [facility] Address [address] [place] [address] Care Team Providers Care Ore Buyer Name Role Phone Alesia Rooney Primary Care Provider + [phone] Sarahi Haines NP Primary Care Provider + [phone] Encounter Details Date Type Department Care Team (Late st Contact Info) Description 07/19/2020 [employer] Message [facility] Medical Group Family & Internal Medicine [facility] [address] [place] [address] Suzette, [facility] Provider RE:Lab Results Social History Tobacco Use Types Packs/Day Years Used Date Smoking Tobacco: Never Smokeless Tobacco: Never Alcohol Use Standard Drinks/Week Comments Yes 0 (1 standard drink = 0.6 oz pur e alcohol) AUDIT-C Answer Date Recorded Q1: How often do you have a drink containing alc ohol? 2-4 times a month 07/18/2020 Q2: How many drinks containi ng alcohol do you have on a typical day when you are drinking? 3 or 4 07/18/2020 Q3: How often do you have si x or more drinks on one occasion? Less than monthly 07/18/2020 Comments No Sex and Gender Information Value Date Recorded Sex Assigned at Female 12/30/2024 12:23 PM PLANNER SCHEDULER Legal Sex Female 10:39 AM CDT Gender Identity Not on file Sexual Orientation Not on file COVID-19 Exposure Response Date Recorded In the last month, have you been in contact with someone who was confirmed or suspected to have Coronavirus / COVID-19? No / Unsure 07/18/2020 8:20 AM CDT documented as of this encounter Plan of Treatment Not on file documented as of this encounter Visit Diagnoses Not on filedocumented in this encounter Care Teams Ore Buyer Relationship Specialty [place] [address] [place] [address] PCP - General PHYSICIAN FIRMWARE TEST ENGINEER 07/18/20 04/26/24 [place] [address] [address] [facility] [address] [place] [address] PCP - General Nurse Practitioner Family 04/27/24 documented as of this encounter
--- OUTSIDE RECORDS SUMMARY | 2025-07-04 11:34 | XMS_ITS | Encounter Summary ---
Author Organization [facility] Address [address] [place] [address] Care Team Providers Care End Frazer Name Role Phone Alesia Rooney Primary Care Provider + [phone] Sarahi Haines NP Primary Care Provider + [phone] Encounter Details Date Type Department Care Team (Late st Contact Info) Description 03/03/2023 [employer] Message Enc [facility] Medical Group Family & Internal Medicine [facility] [address] [place] [address] [place] [address] [place] [address] Refill Question Social History Tobacco Use Types Packs/Day Years [...] Sex Assigned at Female 12/30/2024 12:23 PM LIFT ELECTRICIAN Legal Sex Female 10:39 AM CDT Gender Identity Not on file Sexual Orientation Not on file COVID-19 Exposure Response Date Recorded In the last 10 days, have yo u been in contact with someone who was confirmed or suspected to have Coronavirus/COVID-19? No / Unsure 02/04/2023 9:04 AM LIFT ELECTRICIAN documented as of this encounter Plan of Treatment Not on file documented as of this encounter Visit Diagnoses Not on filedocumented in this encounter Additional Health Concerns Assessment Noted Time PHQ-9 Depression Total Score: 5 08/23/20 22 3:00 PM CDT documented as of this encounter Care Teams End Frazer Relationship Specialty [place] [address] [place] [address] PCP - General PHYSICIAN ANTHROPOLOGY PROFESSOR 07/18/20 04/26/24 [place] [address] [address] [address]. [place] [address] PCP - General Nurse Practitioner Family 04/27/24 documented as of this encounter
--- OUTSIDE RECORDS SUMMARY | 2025-07-04 11:34 | XMS_ITS | Encounter Summary ---
Author Organization [facility] Address [address] [place] [address] Care Team Providers Care Dry Kiln Feeder Name Role Phone Alesia Rooney Primary Care Provider + [phone] Sarahi Haines NP Primary Care Provider + [phone] Encounter Details Date Type Department Care Team (Late st Contact Info) Description 12/02/2023 [employer] Message Enc [facility] Medical Group Family & Internal Medicine [facility] [address] [place] [address] [place] [address] [place] [address] Birthcontrol/Women's Health Social History Tobacco Use Types Packs/Day Years [...] Sex Assigned at Female 12/30/2024 12:23 PM PRODUCTION TRUCK DRIVER Legal Sex Female 10:39 AM CDT Gender Identity Not on file Sexual Orientation Not on file documented as of this encounter Plan of Treatment Not on file documented as of this encounter Visit Diagnoses Not on filedocumented in this encounter Additional Health Concerns Assessment Noted Time PHQ-9 Depression Total Score: 5 08/23/20 22 3:00 PM CDT documented as of this encounter Care Teams Dry Kiln Feeder Relationship Specialty [place] [address] [place] [address] PCP - General PHYSICIAN CONDITIONING ROOM WORKER 07/18/20 04/26/24 [place] [address] [address] [address]. [place] [address] PCP - General Nurse Practitioner Family 04/27/24 documented as of this encounter
== END 2025-07-04 11:05 | disposition home or self-care (01) ==
PROVIDERS: PCP Nurse Practitioner Family; Visit Provider Physician Assistant
DX: Z87.442 Personal history of urinary calculi (principal)
CPT/HCPCS: 74018